=== PATIENT | male | born 1975 | race Caucasian/White ===

== ENCOUNTER 2018-06-14 08:37 | Emergency (ER) | payer SELFPAY ==
[~2018-06-14] VITALS: Ht 177.8 cm; Wt 77.3 kg
[2018-06-14 09:10] LABS: EOS % 0.1 % (0.0-4.0); HEMATOCRIT 44.8 % (42.0-52.0); HEMOGLOBIN 15.1 g/dL (13.5-18.0); MEAN CELL VOLUME 93 fl (78-100); MEAN CORPUSCULAR HEMOGLOBIN 31 pg (27-31); MEAN CORPUSCULAR HGB CONC 34 g/dL (33-37); MEAN PLATELET VOLUME 10.9 fl (7.4-10.4); MONO # 0.5 (0.20-0.80); NEU # 5.6 (1.40-6.50); PLATELET COUNT 196 K/mm3 (130-400); RED BLOOD COUNT 4.84 M/mm3 (4.20-5.60); RED CELL DISTRIBUTION WIDTH 12.4 % (11.5-14.5); WHITE BLOOD COUNT 7.1 K/mm3 (4.8-10.8)
[2018-06-14 09:23] LABS: ALBUMIN 4.1 g/dL (3.5-5.0); CALCIUM 8.9 mg/dL (8.4-10.2); POTASSIUM 4.2 mmol/L (3.6-5.0); TOTAL BILIRUBIN 0.7 mg/dL (0.2-1.3); TOTAL PROTEIN 6.5 g/dL (6.3-8.2)
[2018-06-14 10:29] LABS: URINE WBC 0 /hpf (0-3)
[2018-06-14 10:48] LABS: URINE APPEARANCE CLEAR; URINE BILIRUBIN NEGATIVE (NEGATIVE); URINE BLOOD NEGATIVE (NEGATIVE); URINE COLOR YELLW; URINE GLUCOSE NEGATIVE (NEGATIVE); URINE KETONE SMALL (NEGATIVE); URINE LEUKOCYTE ESTERASE NEGATIVE (NEGATIVE); URINE MUCUS PRESENT (NOT PRESENT); URINE NITRATE NEGATIVE (NEGATIVE); URINE PROTEIN(semi-quant) TRACE mg/dL (NEGATIVE); URINE UROBILINOGEN NORMAL (NORMAL)
[2018-06-14 11:32] VITALS: BP 154/82
== END 2018-06-14 11:29 | disposition home or self-care (01) ==
LOC: ED 08:37
PROVIDERS: Nurse Practitioner Family
DX: R55 Syncope and collapse (principal); Z87.891 Personal history of nicotine dependence
CPT/HCPCS: J7030